=== PATIENT | male | born 1960 | race Caucasian/White ===

== ENCOUNTER 2020-09-17 07:33 | Outpatient (CLI) | payer OTHER, SELFPAY ==
--- NOTE | ~2020-09-17 | XR_ITS ---
EXAMINATION: XR ankle LT min 3V EXAM DATE: 09/17/2020 08:30 INDICATION: Left hip pain, effusion. Palpable abnormality anteromedially for 2-3 weeks. No known rece nt trauma. TECHNIQUE: Left ankle frontal, lateral and oblique projections obtained and reviewed. There is no pr ior study for comparison. FINDINGS: The left ankle mortise appears intact. There are moderate size calcaneal spurs. No talar osteochondral defect. There are no acute fractures or dislocations identified. There is no subcutan eous gas. The soft tissue is unremarkable. There are no radiopaque foreign bodies. IMPRESSION: Left calcaneal spurs. Reviewed, dictated and finalized at location B. AL SCIENCES CHAIR IMPRESSION: Left calcaneal spurs.
== END 2020-09-17 07:34 ==
PROVIDERS: PCP Family Medicine; Visit Provider Nurse Practitioner Family
DX: M25.40 Effusion, unspecified joint (principal); M77.32 Calcaneal spur, left foot
CPT/HCPCS: 73610

== ENCOUNTER 2020-09-26 07:29 | Outpatient (CLI) | payer OTHER, SELFPAY ==
[2020-09-26 07:45] LABS: Hematocrit 47.9 % (42.0-52.0); Mean Corpuscular HGB Conc 33.4 g/dl (32-36); Mean Corpuscular Volume 89.7 fl (80-100); Mean Platelet Volume 9.5 fl (7.4-10.4); Platelet Count Result 217 k/mm3 (150-375); Red Blood Count 5.34 M/mm3 (4.6-6.20); Red Cell Distribution Width 12.2 % (11.5-14.5)
[2020-09-26 07:58] LABS: Anion Gap 4 mmol/L (8-16); Blood Urea Nitrogen 14 mg/dL (9-20); Calcium 9.1 mg/dL (8.4-10.2); Carbon Dioxide 30 mmol/L (22-30); Chloride 106 mmol/L (98-107); Estimated Glomerular Filt Rate > 60; Glucose 125 mg/dL (75-110); Potassium 4.4 mmol/L (3.4-5.0); Sodium 140 mmol/L (137-145); Uric Acid 4.7 mg/dL (3.5-8.5)
[2020-09-26 08:05] LABS: Rheumatoid Factor < 8.6 IU/ML (<12)
[2020-09-26 08:12] LABS: Erythrocyte Sedimentation Rate 10 mm/hr (0-20)
== END 2020-09-26 07:30 | disposition home or self-care (01) ==
PROVIDERS: PCP Family Medicine; Visit Provider Nurse Practitioner Family
DX: M25.40 Effusion, unspecified joint (principal); M25.50 Pain in unspecified joint
CPT/HCPCS: 36415; 80048; 84550; 85027; 85652; 86038; 86430

== ENCOUNTER → 2020-10-30 08:38 | Outpatient (CLI) | payer OTHER, SELFPAY ==
--- NOTE | ~2020-10-30 | US_ITS ---
EXAMINATION: US venous doppler [facility] DATE: 10/30/2020 09:20 INDICATION: Left lower limb pain. TECHNIQUE: Grayscale ultrasound images without and with compression and Doppler ultrasound images of the bilateral lower extremity veins were obtained. COMPARISON: None. FINDINGS: The visualized portions of right common femoral vein, profunda (deep) femoral vein, femoral vein, pop liteal vein, peroneal veins, posterior tibial veins, and greater saphenous vein outflow are patent. The visualized portions of left common femoral vein, profunda femoral vein, femoral vein, popliteal v ein, peroneal veins, posterior tibial veins, and greater saphenous vein outflow are patent. IMPRESSION: 1. No deep venous thrombosis. Reviewed, dictated and finalized at location A.
== END ==
PROVIDERS: PCP Nurse Practitioner Family; Visit Provider Nurse Practitioner Family
DX: M79.605 Pain in left leg (principal)
CPT/HCPCS: 93970

== ENCOUNTER → 2021-07-09 10:07 | Outpatient (CLI) | payer OTHER, SELFPAY ==
--- NOTE | ~2021-07-09 | XR_ITS ---
EXAMINATION: XR chest 2V 07/09/2021 10:37 INDICATION: Cough PROCEDURE: 2 view chest COMPARISON: No prior studies for comparison. FINDINGS: The lungs are clear. The cardiomediastinal silhouette is within normal limits. There are no pleural effusions. There is no pneumothorax suspected. There is diffuse idiopathic skeletal hyp erostosis (DISH) of the thoracic spine. IMPRESSION: 1: NO ACUTE CARDIOPULMONARY DISEASE. Reviewed, dictated and finalized at location A. GY ENGINEER
== END ==
PROVIDERS: PCP Family Medicine; Visit Provider Nurse Practitioner Family
DX: R05.9 Cough, unspecified (principal)
CPT/HCPCS: 71046

== ENCOUNTER 2023-11-06 12:38 | Outpatient (CLI) | payer OTHER, SELFPAY ==
--- NOTE | ~2023-11-06 | XR_ITS ---
EXAMINATION:XR_[id number]_CR, XR thoracic spine 2V, XR lumbar spine 2-3V DATE: 11/06/2023 13:10 INDICATION: Neck, mid and low back pain. TECHNIQUE: 1. AP, lateral, open-mouth and submental odontoid views of the cervical spine are provided. 2. AP, lateral and lateral swimmer's views of the thoracic spine were obtained. 3. AP, lateral and coned-down lateral lumbosacral views of the lumbar spine were obtained. COMPARISON: None FINDINGS: Cervical spine: Alignment is normal. Odontoid is intact. Moderate atlantoaxial osteoarthritis. Vertebral body heights are normal. Mild disc height loss at C5-C6 with small posterior endplate osteophytes contributing to mild central canal stenosis at this level. Anterior endplate osteophytes at C4-C7. Severe bilateral uncovertebral osteoarthritis at C5-C6. Additional multilevel mild to moderate bilateral cervical unco vertebral osteoarthritis. Severe facet osteoarthritis on the right at C2-C3 and C3-C4 with mild to mo derate facet osteoarthritis at the remaining cervical levels. Prevertebral soft tissues are normal. Thoracic spine: 12 degrees mid thoracic dextroscoliosis with 9 degrees compensatory upper thoracic levocurvature. Sag ittal alignment is normal. Vertebral body heights are normal. Mild disc height loss at multiple level s scattered throughout the thoracic spine. There are bridging osteophytes at multiple levels consiste nt with diffuse idiopathic skeletal hyperostosis (DISH). A few scattered small calcified pulmonary no dules consistent with old granulomatous disease. No pleural effusion or pneumothorax. Heart size is n ormal. Lumbar spine: Alignment is normal. Vertebral body heights are normal. Degenerative endplate changes with anterior e ndplate osteophytes most prominent at the upper lumbar spine. Mild disc height loss at L4-L5. At leas t moderate facet osteoarthritis in the lower lumbar spine. Likely transitional L5 segment. Mild bilat eral sacroiliac osteoarthritis. IMPRESSION: 1. Mild cervical, thoracic and lumbar spondylosis. Reviewed, dictated and finalized at location B. IMPRESSION: 1. Mild cervical, thoracic and lumbar spondylosis. IMPRESSION: 1. Mild cervical, thoracic and lumbar spondylosis.
== END 2023-11-06 12:39 ==
PROVIDERS: PCP Chiropractor; Visit Provider Chiropractor
DX: M47.892 Other spondylosis, cervical region (principal); M47.894 Other spondylosis, thoracic region; M47.896 Other spondylosis, lumbar region
CPT/HCPCS: 72040; 72070; 72100

== ENCOUNTER 2025-02-01 13:30 | Outpatient (CLI) | payer OTHER, SELFPAY ==
--- NOTE | ~2025-02-01 | XR_ITS ---
EXAM/PROCEDURE: XR chest 2V - 02/01/2025 13:33 CDT HISTORY: 65 years old Male with I10 - Essential (primary) hypertension TECHNIQUE: Two view(s) of the chest. COMPARISON: None available. FINDINGS: LUNGS/ PLEURA: No focal consolidation. No appreciable pneumothorax or large pleural effusion. HEART/ MEDIASTINUM: Heart appears normal in size. BONES: Degenerative changes. OTHER: Visualized upper abdomen is unremarkable. IMPRESSION: No acute process. Reviewed, dictated and finalized at location A. IMPRESSION: No acute process.
== END 2025-02-01 13:31 | disposition home or self-care (01) ==
PROVIDERS: PCP Family Medicine; Visit Provider Nurse Practitioner Family
DX: E78.5 Hyperlipidemia, unspecified (principal); I10 Essential (primary) hypertension; R73.09 Other abnormal glucose; Z13.29 Encounter for screening for other suspected endocrine disorder; E55.9 Vitamin D deficiency, unspecified; Z12.5 Encounter for screening for malignant neoplasm of prostate
CPT/HCPCS: 71046

== ENCOUNTER 2025-02-16 10:40 | Outpatient (CLI) | payer OTHER, SELFPAY ==
--- OUTSIDE RECORDS SUMMARY | 2025-02-16 10:51 | XMS_ITS | Clinical Summary ---
Author Organization [facility] Address [address] [place] [address] Phone Care Team Providers Care Biology Specimen Technician Name Role Phone Grey Shah MD Primary Care Provider [phone] Allergies Active Allergy Reactions Criticality Noted Date Comments Hydrocodone-Acetaminophen Headache Low 03/02/2024 Medications meclizine (ANTIVERT) 25 mg tablet Take 1 Tablet (25 mg) by mouth 3 times daily as needed for Dizziness. 10 Tablet 03/02/2024 Active ibuprofen (MOTRIN) 600 mg tablet Take 1 Tablet (600 mg) by mouth every 6 hours as needed for Pain, Mild. 20 Tablet 02/06/2025 Active amoxicillin-cla vulanate (AUGMENTIN) 875-125 mg tablet Take 1 Tablet by mouth every 12 hours for 7 days. 14 Tablet 02/02/2025 Encounters Date Type Department Care Team Description 02/08/2025 External Device Data [facility] ABSTRACTION Provider, Abstract 02/08/2025 External Device Data [facility] ABSTRACTION Provider, Abstract 02/08/2025 External Device Data [facility] ABSTRACTION Provider, Abstract 02/08/2025 External Device Data [facility] ABSTRACTION Provider, Abstract 02/07/2025 External Device Data [facility] ABSTRACTION Provider, Abstract 02/06/2025 9:08 AM CDT - 02/06/2025 10:51 AM CDT Emergency [facility] Emergency Department [address] [place] [address] Superficial venous thrombosis of right arm (Primary Dx) Discharge Disposition: Home or Self Care 02/02/2025 7:01 PM CDT - 02/02/2025 11:11 PM CDT Emergency [facility] Emergency Department [address] [place] [phone] Dental abscess (Primary Dx); Left sided numbness Discharge Disposition: Home or Self Care 02/02/2025 Travel 01/10/2025 External Device Data [facility] ABSTRACTION Provider, Abstract 01/03/2025 External Device Data [facility] ABSTRACTION Provider, Abstract 12/13/2024 External Device Data [facility] ABSTRACTION Provider, Abstract 11/29/2024 External Device Data [facility] ABSTRACTION Provider, Abstract from Last 3 Months Social History Tobacco Use Types Packs/Day Years Used Date Smoking Tobacco: Former Cigarettes Tobacco Cessation:Counseling Given: Not Answered Sex and Gender Information Value Date Recorded Sex Assigned at Not on file Legal Sex Male 1:03 PM CDT Gender Identity Not on file Sexual Orientation Not on file Last Filed Vital Signs Vital Sign Reading Time Taken Comments Blood Pressure 166/76 02/06/2025 8:50 AM CDT Pulse 82 02/06/2025 10:45 AM CDT Temperature 36.6 C (97.9 F) 02/06/2025 8:50 AM CDT Respiratory Rate 20 02/06/2025 8:50 AM CDT Oxygen Saturation 98% 02/06/2025 10:45 AM CDT Inhaled Oxygen Concentration - - Weight 81.6 kg (180 lb) 02/06/2025 8:50 AM CDT Height 182.9 cm (6') 02/06/2025 8:50 AM CDT Body Mass Index 24.41 02/06/2025 8:50 AM CDT Plan of Treatment Health Maintenance Due Date Last Done Comments DTAP/TDAP/TD VACCINES (1 - Tdap) 01/12/1979 COLORECTAL SCREENING 01/12/2005 Colorectal Cancer Screening 01/12/2005 FIT-DNA Q 3 years 01/12/2005 FIT/FOBT Q 1 year 01/12/2005 Flex Sig/CT Colonography Q 5 years 01/12/2005 PNEUMOCOCCAL VACCINE 50+ YEARS (1 of 1 - PCV) 01/13/20 10 ZOSTER VACCINE (1 of 2) 01/12/2010 Abdominal Aortic Aneurysm (AAA) Screening 01/12/2025 INFLUENZA VACCINE (#1) 2025 RSV VACCINE (60+ or ) (1 - 1-dose 75+ series) 01/12/2035 Procedures Procedure Name Priority Date/Time Associated Diagnosis Comments US DOPPLER VENOUS ARM RIGHT Stat 02/06/2025 10:17 AM CDT COMPREHENSIVE METABOLIC PANEL Stat 02/06/2025 8:59 AM CDT CBC WITH DIFFERENTIAL Stat 02/06/2025 8:59 AM CDT TROPONIN 6 HR, 5TH GEN Timed Study 02/02/2025 10:[address] HEAD WO CONTRAST Stat 02/02/2025 9 :02 PM CDT XR CHEST PA AND LATERAL 2 VW Stat 02/02/2025 8:11 PM CDT TROPONIN 2 HR, 5TH GEN Timed Study 02/02/2025 5:28 PM CDT EXTRA TUBE (BLUE) Stat 02/02/2025 12: 50 PM CDT EXTRA TUBE Stat 02/02/2025 12:50 PM CDT COMPREHENSIVE METABOLIC PANEL Stat 02/02/2025 12:50 PM CDT CBC WITH DIFFERENTIAL Stat 02/02/2025 12:50 PM CDT TROPONIN BASELINE, 5TH GEN Stat 02/02/2025 12:50 PM CDT EKG 12-LEAD Stat 02/02/2025 12:42 PM CDT OXYGEN VIA DEVICE TO KEEP O2 SAT ABOVE Stat 02/02/2025 12:38 PM CDT from Last 3 Months Results * US DOPPLER VENOUS ARM RIGHT (02/06/2025 10:17 AM CDT) Anatomical Region Laterality Modality Upper Extremity Ultrasound 02/06/2025 10:1 7 AM CDT Impressions 02/06/2025 10:21 AM CDT IMPRESSION: 1. No evidence of right upper extremity deep vein thrombosis. 2. Superficial thrombosis of the right cephalic vein in the forearm. DICTATION LOCATION: Location [address] [place] [address] Narrative 02/06/2025 10:21 AM CDT EXAMINATION: US DOPPLER VENOUS ARM RIGHT DATE: 02/06/2025 10:17 AM HISTORY: Deep Vein Thrombosis DVT; recent IV in the right arm with redness and swelling. COMPARISON: No prior study is available for comparison at the time of this dictation. FINDINGS: Adkins scale, color Doppler and spectral analysis were used to evaluate the jugular, subclavian, axillary, brachial, basilic, and cephalic veins. The visible deep veins of the right upper extremity demonstrate normal compressibility, augmentation, and Doppler color flow without evidence of intravascular echogenicity. Superficial thrombosis seen in the right cephalic vein in the forearm. Procedure Note Jennifer Gibbs MD - 02/06/2025 EXAMINATION: US DOPPLER VENOUS ARM RIGHT DATE: 02/06/2025 10:17 AM HISTORY: Deep Vein Thrombosis DVT; recent IV in the right arm with redness and swelling. COMPARISON: No prior study is available for comparison at the time of this dictation. FINDINGS: Adkins scale, color Doppler and spectral analysis were used to evaluate the jugular, subclavian, axillary, brachial, basilic, and cephalic veins. The visible deep veins of the right upper extremity demonstrate normal compressibility, augmentation, and Doppler color flow without evidence of intravascular echogenicity. Superficial thrombosis seen in the right cephalic vein in the forearm. IMPRESSION: 1. No evidence of right upper extremity deep vein thrombosis. 2. Superficial thrombosis of the right cephalic vein in the forearm. DICTATION LOCATION: Location [address] [place] [address] us Sharyn Garcia NP US ORDERABLES Final Res ult * (ABNORMAL) CBC WITH DIFFERENTIAL (02/06/2025 8:59 AM CDT) Only the most recent of2 resultswithin the time period is included. WBC 9.3 4.0 - 9.8 K/uL 02/06/2025 9:42 AM CDT [facility] RBC 5.11 4.50 - 5.40 M/uL 02/06/2025 9:42 AM CDT [facility] HEMOGLOBIN 15.4 13.6 - 16.5 g/dL 02/06/2025 9:42 AM CDT [facility] HEMATOCRIT 46.1 40.0 - 48.0 % 02/06/2025 9:42 AM CDT [facility] MCV 90.2 82.0 - 99.0 fL 02/06/2025 9:42 AM CDT [facility] MCH 30.1 27.2 - 32.6 pg 02/06/2025 9:42 AM CDT [facility] MCHC 33.4 31.5 - 35.5 g/dL 02/06/2025 9:42 AM CDT [facility] RDW 12.2 11.5 - 14.5 % 02/06/2025 9:42 AM CDT [facility] RDW-STDEV 40.2 37.1 - 48.7 fL 02/06/2025 9:42 AM CDT [facility] PLATELETS 232 140 - 350 K/uL 02/06/2025 9:42 AM CDT [facility] MPV 9.4 9.3 - 12.4 fL 02/06/2025 9:42 AM CDT [facility] NEUTROPHILS 63 % 02/06/2025 9:42 AM CDT [facility] LYMPHOCYTES 24 % 02/06/2025 9:42 AM CDT [facility] MONOCYTES 10 % 02/06/2025 9:42 AM CDT [facility] EOSINOPHILS 2 % 02/06/2025 9:42 AM CDT [facility] BASOPHILS 0 % 02/06/2025 9:42 AM CDT [facility] IMMATURE GRANULOCYTES 0 % 02/06/2025 9:42 AM CDT [facility] NEUTROPHIL ABSOLUTE 5.80 1.90 - 7.00 K/uL 02/06/2025 9:42 AM CDT [facility] LYMPHOCYTE ABSOLUTE 2.26 0.70 - 4.50 K/uL 02/06/2025 9:42 AM CDT [facility] MONOCYTE ABSOLUTE 0.96 0.10 - 1.30 K/uL 02/06/2025 9:42 AM CDT [facility] EOSINOPHIL ABSOLUTE 0.20 0.00 - 0.70 K/uL 02/06/2025 9:42 AM CDT [facility] BASOPHILS ABSOLUTE 0.03 0.00 - 0.20 K/uL 02/06/2025 9:42 AM CDT [facility] IMMATURE GRANULOCYTES ABSOLUTE 0.04(H) 0.00 - 0.03 K/uL 02/06/2025 9:42 AM CDT [facility] Blood Venipuncture / Unknown 02/06/2025 8:59 AM CDT 02/06/2025 9:40 AM CDT us Protocol [facility] MD HEMATOLOGY ORDERABLES Final Result [facility] CLIA# [id number] [place] [address] * (ABNORMAL) COMPREHENSIVE METABOLIC PANEL (02/06/2025 8:59 AM CDT) Only the most recent of2 resultswithin the time period is included. SODIUM 139 136 - 145 mmol/L 02/06/2025 10:06 AM CDT [facility] POTASSIUM 3.9 3.4 - 5.1 mmol/L 02/06/2025 10:06 AM T [facility] CHLORIDE 104 98 - 107 mmol/L 02/06/2025 10:06 AM CDT [facility] CO2 25 22 - 29 mmol/L 02/06/2025 10:06 AM T [facility] CALCIUM 9.8 8.6 - 10.4 mg/dL 02/06/2025 10:06 AM CDT [facility] BUN 12 6 - 20 mg/dL 02/06/2025 10:06 AM CDT [facility] CREATININE 0.68 0.67 - 1.17 mg/dL 02/06/2025 10:06 AM T [facility] GLUCOSE 119(H) 74 - 99 mg/dL 02/06/2025 10:06 AM T [facility] TOTAL PROTEIN 7.2 6.3 - 8.7 g/dL 02/06/2025 10:06 AM [facility] ALBUMIN 4.3 3.5 - 5.2 g/dL 02/06/2025 10:06 AM [facility] BILIRUBIN TOTAL 0.4 0.0 - 1.1 mg/dL 02/06/2025 10:06 AM T [facility] ALKALINE PHOSPHATASE 99 40 - 150 U/L 02/06/2025 10:06 AM [facility] AST 28 0 - 41 U/L 02/06/2025 10:06 AM [facility] ALT 33 0 - 41 U/L 02/06/2025 10:06 AM [facility] GFR >60 >=60 mL/min/1.7 3 sq meter 02/06/2025 10:06 AM [facility] Comment:eGFR calculated with 2020 CKD-EPI equation. Vegetarian diet, extremely high or low muscle mass, and may affect results. Cystatin C with Glomerular Filtration Rate is a suitable alternative for these patients. ANION GAP 10 8 - 16 mmol/L 02/06/2025 10:06 AM [facility] Blood Venipuncture / Unknown 02/06/2025 8:59 AM CDT 02/06/2025 9:38 AM CDT us Protocol [facility] MD CHEMISTRY ORDERABLES Final Result [facility] CLIA# [id number] [place] [address] * TROPONIN 6 HR, 5TH GEN (02/02/2025 10:10 PM CDT) TROPONIN T, 6 HR 5TH GEN 10 <=15 ng/L 02/02/2025 11:12 PM CDT [facility] DELTA 6HR TROPONIN T -3 See Interp. 02/02/2025 11:12 PM CDT [facility] Blood Venipuncture / Unknown 02/02/2025 10:10 PM CDT 02/02/2025 10:20 PM CDT Narrative [facility] - 02/02/2025 11:12 PM CDT Troponin Detectable but normal range. Delta indeterminate. Delay in collection of timed specimen beyond recommended collection interval. Results must be interpreted in clinical context. us Protocol [facility] MD CHEMISTRY ORDERABLES Final Result [facility] CLIA# [id number] [place] [address] * CT HEAD WO CONTRAST (02/02/2025 9:02 PM CDT) Anatomical Region Laterality Modality Head Computed Tomogra phy 02/02/2025 8:56 PM CDT Impressions 02/02/2025 9:26 PM CDT IMPRESSION: 1. Unremarkable brain. 2. Right maxillary dental abscess. The examination was performed with the adjustment of mA according to the patient size and/or the use of Iterative Reconstruction Technique. DICTATION LOCATION: Location [address] [place] [address] Narrative 02/02/2025 9:26 PM CDT EXAMINATION: CT HEAD WO CONTRAST DATE: 02/02/2025 9:02 PM HISTORY: Transient ischemic attack (TIA), Left sided paraesthesias and HTN FINDINGS: Transverse brain sections are obtained without contrast revealing normal sized ventricles and sulci. Grewal-white differentiation is intact. Right maxillary premolar periapical abscesses and right maxillary sinus mucosal thickening are observed. Pituitary size is normal. There is no intracranial hemorrhage, mass effect, fluid collection, or skull lesion. Procedure Note Roberto Wen MD - 02/02/2025 EXAMINATION: CT HEAD WO CONTRAST DATE: 02/02/2025 9:02 PM HISTORY: Transient ischemic attack (TIA), Left sided paraesthesias and HTN FINDINGS: Transverse brain sections are obtained without contrast revealing normal sized ventricles and sulci. Grewal-white differentiation is intact. Right maxillary premolar periapical abscesses and right maxillary sinus mucosal thickening are observed. Pituitary size is normal. There is no intracranial hemorrhage, mass effect, fluid collection, or skull lesion. IMPRESSION: 1. Unremarkable brain. 2. Right maxillary dental abscess. The examination was performed with the adjustment of mA according to the patient size and/or the use of Iterative Reconstruction Technique. DICTATION LOCATION: Location [address] [place] [address] Sharyn [facility] GAS COMPRESSOR TURBINE OPERATOR CT ORDERABLES Final Res ult * XR CHEST PA AND LATERAL 2 VW (02/02/2025 8:11 PM CDT) Anatomical Region Laterality Modality Chest Computed Radiogr aphy 02/02/2025 8:12 PM CDT Narrative 02/02/2025 8:27 PM CDT EXAMINATION: XR CHEST PA AND LATERAL 2 VW DATE: 02/02/2025 8:11 PM HISTORY: Chest Pain, Shortness of Breath SOB,See Reason for Exam FINDINGS: Diffuse idiopathic skeletal hyperostosis, COPD, clear lungs, and normal heart size are observed. There is no pleural effusion. DICTATION LOCATION: Location [address] [place] [address] Procedure Note Roberto Wen MD - 02/02/2025 EXAMINATION: XR CHEST PA AND LATERAL 2 VW DATE: 02/02/2025 8:11 PM HISTORY: Chest Pain, Shortness of Breath SOB,See Reason for Exam FINDINGS: Diffuse idiopathic skeletal hyperostosis, COPD, clear lungs, and normal heart size are observed. There is no pleural effusion. DICTATION LOCATION: Location [address] [place] [address] Sharyn [facility] GAS COMPRESSOR TURBINE OPERATOR DIAGNOSTIC IMAGING ORDERA BLES Final Result * TROPONIN 2 HR, 5TH GEN (02/02/2025 5:28 PM CDT) TROPONIN T, 2 HR 5TH GEN 9 <=15 ng/L 02/02/2025 6:32 PM CDT [facility] DELTA 2HR TROPONIN T -4 See Interp. 02/02/2025 6:32 PM CDT [facility] Blood Venipuncture / Unknown 02/02/2025 5:28 PM CDT 02/02/2025 5:58 PM CDT Narrative [facility] - 02/02/2025 6:32 PM CDT Troponin Detectable but normal range. Delta indeterminate. Delay in collection of timed specimen beyond recommended collection interval. Results must be interpreted in clinical context. us Protocol [facility] MD CHEMISTRY ORDERABLES Final Result Performing Organization Address City/[facility]/ZIP Co de Phone Number [facility] CLIA# [id number] [place] [address] * EXTRA TUBE (BLUE) (02/02/2025 12:50 PM CDT) Blood Venipuncture / Unknown 02/02/2025 12:50 PM CDT 02/02/2025 1:06 PM CDT us Protocol [facility] MD HEMATOLOGY ORDERABLES Final Result Performing Organization Address [facility] Co de Phone Number [facility] CLIA# [id number] [place] [address] * TROPONIN BASELINE, 5TH GEN (02/02/2025 12:50 PM CDT) TROPONIN T, BASELINE 5TH GEN 13 <=15 ng/L 02/02/2025 1:37 PM CDT [facility] Blood Venipuncture / Unknown 02/02/2025 12:50 PM CDT 02/02/2025 1:07 PM CDT Narrative [facility] - 02/02/2025 1:37 PM CDT Troponin Detectable but normal range. 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1960 Requested By: Order Number: [id number] Reading MD: Timothy Walters Measurements Intervals [place] Rate: 88 P: 69 [place]: 180 QRS: 26 QRSD: 96 T: 38 QT: 374 QTc: 452 Interpretive Statements Normal sinus rhythm Nonspecific ST-T changes Compared to ECG 03/02/2024 13:38:54 No significant changes Electronically Signed On 02-02-2025 12:47:46 CDT by Timothy Walters Procedure Note Timothy Walters MD - 02/02/2025 [place] [address] Test Date: 2025-02-02 Pat Name: FAISAL GARCIA Department: 92 Room: 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1960 Requested By: Order Number: [id number] Reading : Timothy Walters Measurements Intervals [place] Rate: 88 P: 69 [place]: 180 QRS: 26 QRSD: 96 T: 38 QT: 374 QTc: 452 Interpretive Statements Normal sinus rhythm Nonspecific ST-T changes Compared to ECG 03/02/2024 13:38:54 No significant changes Electronically Signed On 02-02-2025 12:47:46 CDT by Timothy Walters us Protocol [facility] MD ECG ORDERABLES Final Result INTERFACE SYSTEM Refer to clinic/hospital department from Last 3 Months Insurance [employer] Care Teams Biology Specimen Technician Relationship Specialty Start Date End Date Grey Shah MD [address] [place] [address] PCP - General Family Practice 03/02/24
--- OUTSIDE RECORDS SUMMARY | 2025-02-16 10:51 | XMS_ITS | Clinical Summary ---
Author Organization [facility] Address [address] [place] [id number] Care Team Providers Care Try On Baster Name Role Phone Grey Shah MD Primary Care Provider [phone] Allergies Active Allergy Reactions Criticality Noted Date Comments Statins Joint Pain 05/16/2021 Medications ASPIRIN LOW DOSE 81 MG tablet 05/08/2021 Active albuterol sulfate HFA 108 (90 Base) MCG/ACT inhaler 05/06/2021 Act ani Active Problems No known active problems Family History Medical History Relation Comments No Known Problems Father No Known Problems Mother Relation Status Comments Father Mother Social History Tobacco Use Types Packs/Day Years Used Date Smoking Tobacco: Former Smokeless Tobacco: Never Alcohol Use Standard Drinks/Week Comments Not Currently 0 (1 standard drink = 0.6 oz pur e alcohol) Sex and Gender Information Value Date Recorded Sex Assigned at Not on file Legal Sex Male 1:46 PM CDT Gender Identity Not on file Sexual Orientation Not on file Last Filed Vital Signs Vital Sign Reading Time Taken Comments Blood Pressure 187/81 05/24/2021 12:42 PM CDT Pulse 103 05/24/2021 12:42 PM CDT Temperature 36.4 C (97.5 F) 05/24/2021 12:42 PM CDT Respiratory Rate 18 05/24/2021 12:42 PM CDT Oxygen Saturation 97% 05/24/2021 12:42 PM CDT Inhaled Oxygen Concentration - - Weight 76.2 kg (168 lb) 05/24/2021 12:42 PM CDT Height 182.9 cm (6') 05/24/2021 12:42 PM CDT Body Mass Index 22.78 05/24/2021 12:42 PM CDT Plan of Treatment Health Maintenance Due Date Last Done Comments Colorectal Cancer Screening Colonoscopy (10 Years) 1960 Hepatitis C 01/12/1978 DTaP, Tdap and Td Vaccines ( 1 - Tdap) 01/12/1979 Pneumococcal Vaccine: 50+ Ye ars (1 of 1 - PCV) 01/12/2010 Zoster Vaccines (1 of 2) 01/12/2010 COVID-19 Vaccine (1 - 2023-2 5 season) 2024 RSV Immunization or 60+ Years (1 - 1-dose 75+ series) 01/12/2035 Meningococcal B Vaccine Aged Out No l onger eligible based on patient's age to complete this topic Meningococcal Vaccine Aged Out No tasha kingsley eligible based on patient's age to complete this topic RSV Immunizations Under 20 Months Aged Out No longer eligible based on patient's age to complete this topic Insurance [employer] Care Teams Try On Baster Relationship Specialty Start Date End Date Grey Shah MD [address] [place] [address] PCP - General FAMILY PRACTICE 05/16/21
--- NOTE | 2025-02-16 11:10 | EST_ITS ---
Patient Info Name: Wenceslao Funes Age: 65 years : 1960 Gender: Male Ht: 72 in Wt: 185 lbs BSA: 2.07 m2 Exam Date: 02/16/2025 11:10 AM Patient Status: O Admit Date: 02/16/2025 Exam Type: CA stress test treadmill A treadmill exercise stress test was performed. Staff Attending Provider: Carrie Murray Exercise Technologist: Jordyn Arguello Exercise Physician: Justin Corley DO Summary 1. 1. Negative Chance exercise stress test for ischemic ST changes by ECG criteria. 2. 2. Reduced functional capacity, achieving 7 METs of workload. 3. 3. Non-sustained ventricular tachycardia occurred at peak exercise. 4. 4. Baseline hypertension with hypertensive response to exercise. 5. 5. Appropriate HR response to exercise. 6. 6. Appropriate HR recovery at 1 minute post exercise. 7. 7. No imaging with stress testing. 8. 8. Patient informed of the above results. Protocol: Chance Stress ECG Details Stage: REST Duration (min): 1 min : 24 sec Speed (mph): 0.0 Grade (%): 0 HR (bpm): 87 SBP (mmHg): 151 DBP (mmHg): 98 METS: --- Stage: REST Duration (min): 6 min : 20 sec Speed (mph): 0.0 Grade (%): 0 HR (bpm): 88 SBP (mmHg): 151 DBP (mmHg): 98 METS: --- Stage: STAGE 1 Duration (min): 1 min : 0 sec Speed (mph): 1.7 Grade (%): 10 HR (bpm): 99 SBP (mmHg): 151 DBP (mmHg): 98 METS: --- Stage: STAGE 1 Duration (min): 2 min : 0 sec Speed (mph): 1.7 Grade (%): 10 HR (bpm): 109 SBP (mmHg): 151 DBP (mmHg): 98 METS: --- Stage: STAGE 1 Duration (min): 3 min : 0 sec Speed (mph): 1.7 Grade (%): 10 HR (bpm): 115 SBP (mmHg): 195 DBP (mmHg): 79 METS: --- Stage: STAGE 2 Duration (min): 1 min : 0 sec Speed (mph): 2.5 Grade (%): 12 HR (bpm): 121 SBP (mmHg): 195 DBP (mmHg): 79 METS: --- Stage: STAGE 2 Duration (min): 2 min : 0 sec Speed (mph): 2.5 Grade (%): 12 HR (bpm): 127 SBP (mmHg): 207 DBP (mmHg): 78 METS: --- Stage: STAGE 2 Duration (min): 3 min : 0 sec Speed (mph): 0.0 Grade (%): 0 HR (bpm): 133 SBP (mmHg): 207 DBP (mmHg): 78 METS: --- Stage: STAGE 2 Duration (min): 4 min : 0 sec Speed (mph): 0.0 Grade (%): 0 HR (bpm): 119 SBP (mmHg): 207 DBP (mmHg): 78 METS: --- Stage: STAGE 2 Duration (min): 5 min : 0 sec Speed (mph): 0.0 Grade (%): 0 HR (bpm): 109 SBP (mmHg): 261 DBP (mmHg): 80 METS: --- Stage: STAGE 2 Duration (min): 6 min : 0 sec Speed (mph): 0.0 Grade (%): 0 HR (bpm): 102 SBP (mmHg): 261 DBP (mmHg): 80 METS: --- Stage: STAGE 2 Duration (min): 7 min : 0 sec Speed (mph): 0.0 Grade (%): 0 HR (bpm): 100 SBP (mmHg): 261 DBP (mmHg): 80 METS: --- Stage: STAGE 2 Duration (min): 8 min : 0 sec Speed (mph): 0.0 Grade (%): 0 HR (bpm): 97 SBP (mmHg): 261 DBP (mmHg): 80 METS: --- Stage: STAGE 2 Duration (min): 9 min : 0 sec Speed (mph): 0.0 Grade (%): 0 HR (bpm): 97 SBP (mmHg): 261 DBP (mmHg): 80 METS: --- Stage: STAGE 2 Duration (min): 9 min : 37 sec Speed (mph): 0.0 Grade (%): 0 HR (bpm): 98 SBP (mmHg): 160 DBP (mmHg): 88 METS: --- Stage: RECOVERY Duration (min): 0 min : 10 sec Speed (mph): 0.0 Grade (%): 0 HR (bpm): 99 SBP (mmHg): 160 DBP (mmHg): 88 METS: --- Rest HR: 88 bpm Peak HR: 133 bpm Rest Sys BP: 151 mmHg Peak Sys BP: 261 mmHg Max Pred HR: 155 bpm % Max Pred HR: 86 % Target HR: 132 bpm Max RPP: 34,713 bpm*mmHg Maher Score: -2 BP Response: Patient exhibited a hypertensive response with stress Termination Reason: Reached target heart rate or workload, Ventricular tachycardia Cardiac Symptoms: Shortness of breath Max ST Seg Deviation: 2.90 mm Total Time: 12 min : 37 sec Rest Rich BP: 98 mmHg Peak Rich BP: 80 mmHg Angina Score: None Total METS: 7.1 Resting ECG Sinus rhythm. Stress ECG No ST changes. Arrhythmias Short run of VT at 160 bpm lasting 9 beats at peak exercise. Report Signatures
== END 2025-02-16 10:41 | disposition home or self-care (01) ==
PROVIDERS: PCP Family Medicine; Visit Provider Nurse Practitioner Family
DX: Z12.5 Encounter for screening for malignant neoplasm of prostate (principal); Z13.29 Encounter for screening for other suspected endocrine disorder; I10 Essential (primary) hypertension; E78.5 Hyperlipidemia, unspecified; R73.09 Other abnormal glucose; E55.9 Vitamin D deficiency, unspecified
CPT/HCPCS: 93017